=== PATIENT | male | born 1990 | race Caucasian/White ===

== ENCOUNTER 2020-11-11 17:42 | Emergency (ER) | payer BC, SELFPAY ==
[2020-11-11 18:06] VITALS: BP 112/73; PULSE 91; RESP 16; TEMP 36.8; O2SAT 98
--- NOTE | 2020-11-11 18:41 | ED.EAR ---
HPI - Ear Problem General Chief complaint: Ear Stated complaint: LEFT EAR PAIN Time Seen by Provider: 11/11/20 18:10 Source: patient, family, RN notes reviewed and old records reviewed Mode of arrival: ambulatory Limitations: no limitations History of Present Illness HPI Narrative: 30 year old male accompanied by presents to express care with complaints of runny nose, headache, sore throat,left ear pain, congestion, bloody nose episode X1 since last . Patient states that he has taken Mucinex,Tylenol and Ibuprofen with no improvement in his symptoms. Patient states that his symptoms started with headache and his left ear feeling clogged and at times his equilibrium has felt off. Patient states that he does not have PCP, has not had COVID vaccinations. MD Complaint: ear pain and decreased hearing Location: left ear Discharge from ear: Reports no Associated symptoms ear: fever, headache, rhinorrhea and other (nose bleeds) Treatment prior to arrival: oral analgesic Related Data Allergies Allergy/AdvReac Type Severity Reaction Status Date / Time No Known Allergies Allergy Mild Verified 11/11/20 17:51 Review of Systems Review of Systems: CONSTITUTIONAL: Positive for low grade fever, no chills, or sweats. EYES: Denies visual changes, redness, or discharge. ENT: Positive for rhinorrhea, congestion, sore throat, left otalgia. CARDIOVASCULAR: Denies chest pain, palpitations, or edema. RESPIRATORY: Denies cough or dyspnea. GASTROINTESTINAL: Denies abdominal pain, nausea, vomiting, or diarrhea. GENITOURINARY: Denies dysuria or hematuria. SKIN: Denies rash or itching. MUSCULOSKELETAL: Denies back pain, joint pain, or myalgia. NEUROLOGIC: Positive intermittent headache, no numbness, or weakness, reports that equilibrium feels off at times. PSYCHIATRIC: Denies anxiety or depression. All systems reviewed & are unremarkable except as noted in HPI and below PMFSH Past Medical History Medical History (Updated 11/13/20 @ 10:42 by Annita Cuellar NP) ADD (attention deficit disorder) Dental abscess Hypoglycemia Surgical History Surgical History (Updated 11/11/20 @ 18:45 by Annita Cuellar NP) [place] teeth extracted Family History Family History Mother Family history of gastrointestinal disorder Other Cerebrovascular accident Diabetes mellitus Family history of cardiovascular disease Hypertension Social History Social History Smoking status: Never smoker Alcohol intake: never Gender identity (if verbalized by the patient): Male Comments At time of signature, agree with nursing past medical, surgical, social and family history. There is no relevant family history pertinent to the presenting complaint Exam Narrative: GENERAL: Well-appearing, well-nourished, and in no acute distress. HEAD: Normocephalic, atraumatic. EYES: PERRLA and EOMI. ENT: Nares red , clear to light yellow rhinorrhea positive for episodes of epistaxis. Mucous membranes moist.Right TM normal with good light reflex, left TM red and bulging, throat red with no exudates or lesions, tonsils enlarged and red, post nasal drainage noted. NECK: Supple.no lymphadenopathy CHEST: Clear to auscultation. No respiratory distress. SAO2 98% on room air HEART: Regular rate and rhythm. No murmur heard. Normal peripheral pulses. ABDOMEN: Soft, nontender, nondistended, normal active bowel sounds. EXTREMITIES: Normal range of motion. No edema. SKIN: Warm, dry, no rash. NEURO: No focal deficits. Alert and oriented x3. Course Vital Signs Vital signs: Vital Signs Temperature 36.8 C 11/11/20 18:06 Pulse Rate 91 11/11/20 18:06 Respiratory Rate 16 11/11/20 18:06 Blood Pressure 112/73 11/11/20 18:06 Pulse Oximetry 98 11/11/20 18:06 Temperature 36.8 C 11/11/20 18:06 Pulse Rate 91 11/11/20 18:06 Respiratory Rate 16
== END 2020-11-11 18:53 | disposition home or self-care (01) ==
PROVIDERS: Emergency Provider Registered Nurse
DX: J06.9 Acute upper respiratory infection, unspecified (principal); H65.02 Acute serous otitis media, left ear; Z20.822 Contact with and (suspected) exposure to COVID-19
CPT/HCPCS: 87081; 87426; 87880; 99213; C9803; G0463

== ENCOUNTER 2021-10-15 10:25 | Emergency (ER) | payer BC, SELFPAY ==
[2021-10-15 10:34] VITALS: BP 129/79; PULSE 82; RESP 16; TEMP 36.7; O2SAT 99
--- NOTE | 2021-10-15 10:55 | ED.URI ---
HPI - URI/Sore Throat General Chief Complaint: Ear Stated Complaint: ear infection Time Seen by Provider: 10/15/21 10:43 Source: patient Mode of arrival: ambulatory Limitations: no limitations History of Present Illness HPI Narrative: Patient presents today complaining of a 2-day history of right ear pain, sore throat, postnasal drip, rhinorrhea. Denies fever cough. Currently rates pain 6/10 and has been taking DayQuil and cough medicine without relief. Related Data Home Medications Medication Instructions Recorded Confirmed No Home Medications 10/15/21 10/15/21 Allergies Allergy/AdvReac Type Severity Reaction Status Date / Time No Known Allergies Allergy Mild Verified 10/15/21 10:37 Review of Systems Review of Systems: CONSTITUTIONAL: Denies body aches, fever, chills, or sweats. EYES: Denies visual changes, redness, or discharge. ENT: Denies congestion. + Sore throat, postnasal drip, rhinorrhea, right ear pain CARDIOVASCULAR: Denies chest pain, palpitations, or edema. RESPIRATORY: Denies cough or dyspnea. GASTROINTESTINAL: Denies abdominal pain, nausea, vomiting, or diarrhea. GENITOURINARY: Denies dysuria or hematuria. SKIN: Denies rash, itching, or wounds. MUSCULOSKELETAL: Denies back pain, joint pain, or myalgia. NEUROLOGIC: Denies headache, numbness, tingling, or weakness. PSYCH: Denies depression or anxiety. [facility] Past Medical History Medical History ADD (attention deficit disorder) Dental abscess Hypoglycemia Surgical History Surgical History [place] teeth extracted Family History Family History Mother Family history of gastrointestinal disorder Other Cerebrovascular accident Diabetes mellitus Family history of cardiovascular disease Hypertension Social History Social History Smoking status: Never smoker Alcohol intake: never Gender identity (if verbalized by the patient): Male Comments At time of signature, I have reviewed and agree with nursing past medical, surgical, social and family history unless otherwise noted. Please see nursing chart for further information. There is no relevant family history pertinent to the presenting complaint Exam Narrative: GENERAL: Well-appearing, well-nourished, and in no acute distress. HEAD: Normocephalic, atraumatic. EYES: EOMI. No redness or drainage. Conjunctivae normal. ENT: Mucous membranes pink and moist. Nares clear. No rhinorrhea. Left TM normal. Right TM with serous effusion. No evidence of bacterial infection bilaterally. Throat normal with white postnasal drainage. Uvula midline. NECK: Normal AROM. Supple. No lymphadenopathy. CHEST: No respiratory distress. Clear to auscultation. HEART: Regular rate and rhythm. No murmur appreciated. Normal peripheral pulses. EXTREMITIES: Normal range of motion. No edema. SKIN: Warm, dry, no rash. Capillary refill normal. Normal skin turgor. NEURO: No focal deficits. Alert and oriented x3. Gait steady. PSYCH: Normal affect. No signs of depression or anxiety. Course Course Level of Care: Express Care Visit Vital Signs Vital signs: Vital Signs Temperature 98.1 F 10/15/21 10:34 Pulse Rate 82 10/15/21 10:34 Respiratory Rate 16 10/15/21 10:34 Blood Pressure 129/79 10/15/21 10:34 Pulse Oximetry 99 10/15/21 10:34 Oxygen Delivery Room Air 10/15/21 10:34 Temperature 98.1 F 10/15/21 10:34 Pulse Rate 82 10/15/21 10:34 Respiratory Rate 16 10/15/21 10:34 Blood Pressure 129/79 10/15/21 10:34 Pulse Oximetry 99 10/15/21 10:34 Oxygen Delivery Room Air 10/15/21 10:34 Reviewed. Pt has been instructed to follow up with his PCP regarding his elevated blood pressure today. MDM - URI/Sore Throat Differential
== END 2021-10-15 11:03 | disposition home or self-care (01) ==
PROVIDERS: Emergency Provider Nurse Practitioner
DX: J06.9 Acute upper respiratory infection, unspecified (principal)
CPT/HCPCS: 99213; G0463

== ENCOUNTER 2023-01-16 18:16 | Emergency (ER) | payer BC, SELFPAY ==
--- NOTE | ~2023-01-16 | XR_ITS ---
EXAM: XR ankle RT min 3V DATE: 01/16/2023 18:39 HISTORY: fall, anterior/lat/medial pain . COMPARISON: 12/17/2015. FINDINGS: Normal mineralization. No fracture or dislocation. No lytic or blastic lesion. Joint space s are maintained. No erosion or periosteal change. Soft tissues within normal limits. IMPRESSION: No acute osseous finding in the right ankle. Reviewed, dictated and finalized at location K.
[2023-01-16 18:29] VITALS: BP 127/66; PULSE 99; RESP 16; TEMP 36.6; O2SAT 100
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
== END 2023-01-16 19:30 | disposition home or self-care (01) ==
PROVIDERS: Emergency Provider Nurse Practitioner
DX: S93.401A Sprain of unspecified ligament of right ankle, initial encounter (principal); X50.9XXA Other and unspecified overexertion or strenuous movements or postures, initial encounter; Y93.41 Activity, dancing
CPT/HCPCS: 73610; 99213; G0463

== ENCOUNTER 2023-07-04 12:28 | Emergency (ER) | payer BC, SELFPAY ==
--- NOTE | ~2023-07-04 | CT_ITS ---
EXAMINATION: CT abdomen pelvis w con DATE: 07/04/2023 17:16 INDICATION: Right lower quadrant abdominal pain. Nausea. TECHNIQUE: Computed tomography (CT) of the abdomen and pelvis was performed with 100 mL Omnipaque 350 intravenous contrast. Automated exposure control and iterative reconstruction technique were employe d. The dose-length product was 272.75 mGy-cm. COMPARISON: None. FINDINGS: The visualized portions of the lung bases are clear without pneumonia or pleural effusion. The heart size is normal. No pericardial effusion. The liver, gallbladder, spleen, pancreas, adrenal glands, and kidneys are normal. There are no dilated loops of bowel. The appendix is normal. There ar e no pathologically enlarged lymph nodes. There is no free intraperitoneal fluid. There is mild lumba r spondylosis. IMPRESSION: 1. No etiology for the patient's symptoms. Reviewed, dictated and finalized at location E.
[2023-07-04 13:01] VITALS: BP 118/81; PULSE 85; RESP 16; TEMP 36.8; O2SAT 100
--- NOTE | 2023-07-04 16:50 | ED.ABDPAIN ---
HPI - Abdominal Pain General Chief Complaint: Abdominal Pain <LEYDA De La Cruz Last Filed: 07/04/23 16:58> Stated Complaint: abd pain <LEYDA De La Cruz Last Filed: 07/04/23 16:58> Time Seen by Provider: 07/04/23 16:50 <LEYDA De La Cruz Last Filed: 07/04/23 16:58> Focused HPI: Patient is a 33 y/o male who presents to the ED with c/o ABD pain. Patient reports he woke up around 3 am pain in his abdomen. Pain started in his mid abdomen, now radiating to his R lower abdomen. States pain has been constant. Tried taking TUMS w/o relief. He c/o nausea due to the pain, loss of appetite. Denies vomiting, diarrhea, constipation, fevers, Hx of similar pain. GENERAL: Well-appearing, well-nourished, and in no acute distress. HEAD: Normocephalic, atraumatic. CHEST: Clear to auscultation. ?No respiratory distress. HEART: Regular rate and rhythm.? ABD: TTP in RLQ, periumbilical region. Normoactive BS. NEURO: ?Alert and oriented x3. Patient screened in triage and initial orders placed.? ?Additional care and disposition to be based upon?diagnostic testing and treatment. <LEYDA De La Cruz Last Filed: 07/04/23 16:58> Source: patient <LEYDA De La Cruz Last Filed: 07/04/23 16:58> Mode of arrival: ambulatory <LEYDA De La Cruz Last Filed: 07/04/23 16:58> Limitations: no limitations <LEYDA De La Cruz Last Filed: 07/04/23 16:58> History of Present Illness HPI narrative: Patient is a 33-year-old male here today with abdominal pain. Patient notes that this began overnight last night and was associated with significant nausea and multiple episodes of vomiting. The pain began in the epigastrium and progressed to the right lower quadrant. He denies any prior abdominal surgeries. He does note that he had a similar pain approximately 2 years ago when he was seen at [facility]. He was having bright red blood per rectum at that time, is not having blood per rectum now. It was suspected that he had a a.m. bleeding gastric ulcer, was offered admission and he preferred to be discharged home. He has not followed up with any primary care doctor since that time or any GI doctor. No prior history of colonoscopy or endoscopy. No fever or chills. No urinary symptoms. <Livia Ashford MD - Last Filed: 07/04/23 18:36> Related Data Allergies/Adverse Reactions: Allergies Allergy/AdvReac Type Severity Reaction Status Date / Time No Known Allergies Allergy Mild Verified 01/16/23 18:17 <Chastity Valle PA-C - Last Filed: 07/04/23 16:58> Review of Systems Review of Systems: All systems reviewed & are unremarkable except as noted in HPI and below <Livia Ashford MD - Last Filed: 07/04/23 18:36> [facility] Past Medical History Medical History: Medical History ADD (attention deficit disorder) Dental abscess Hypoglycemia <Chastity Valle PA-C - Last Filed: 07/04/23 16:58> Surgical History Surgical History: Surgical History [place] teeth extracted <Chastity Valle PA-C - Last Filed: 07/04/23 16:58> Family History Family History: Family History Mother Family history of gastrointestinal disorder Other Cerebrovascular accident Diabetes mellitus Family history of cardiovascular disease Hypertension <Chastity Valle PA-C - Last Filed: 07/04/23 16:58> Social History Social History: Social History Smoking status: Never smoker Alcohol intake: never Gender identity (if verbalized by the patient): Male <LEYDA De La Cruz Last Filed: 07/04/23 16:58> Exam Narrative: GENERAL: Well-appearing, well-nourished, and in no acute
[2023-07-04 17:04] LABS: Glucose Point of Care 167 mg/dl (65-105)
[2023-07-04 17:11] LABS: Basophils Percent Auto 0.6 % (0.2-1.2); Eosinophils Percent Auto 0.4 % (0-4.4); Hematocrit 47.2 % (42.0-52.0); Immature Granulocyte Absolute 0.01 K/mm3 (0.00-0.031); Immature Granulocyte Percent A 0.1 % (0-0.5); Lymphocytes Absolute Auto 1.38 K/mm3 (0.9-3.2); Lymphocytes Percent Auto 20.3 % (18.3-44.2); Mean Corpuscular HGB Conc 33.9 g/dl (32-36); Mean Corpuscular Volume 88.4 fl (80-100); Monocytes Absolute Auto 0.4 K/mm3 (0.1-0.6); Neutrophils Absolute Auto 4.9 K/mm3 (1.3-6.7); Neutrophils Percent Auto 72.6 % (45.5-73.1); Platelet Count Result 320 k/mm3 (150-375); Red Blood Count 5.34 M/mm3 (4.6-6.20); Red Cell Distribution Width 11.9 % (11.5-14.5); White Blood Count 6.8 K/mm3 (4.5-10.0)
[2023-07-04 17:22] LABS: Alanine Aminotransferase 19 U/L (6-50); Albumin Level 4.9 g/dL (3.5-5.1); Alkaline Phosphatase 52 U/L (38-126); Anion Gap 9 mmol/L (4-12); Aspartate Amino Transferase 26 U/L (17-59); Bilirubin,Total 0.6 mg/dL (0.2-1.3); Blood Urea Nitrogen 8 mg/dL (9-20); Calcium 9.8 mg/dL (8.4-10.2); Carbon Dioxide 27 mmol/L (22-30); Chloride 101 mmol/L (98-107); Estimated CRCL calculation 102 ml/min; Estimated Glomerular Filt Rate > 60; Glucose 171 mg/dL (65-110); Lipase 103 U/L (23-300); Potassium 3.9 mmol/L (3.4-5.0); Sodium 137 mmol/L (137-145)
[2023-07-04] MEDS: DICYCLOMINE HCL INJ 20 MG/2 ML VIAL IM (18:03)
[2023-07-04] MEDS: ONDANSETRON INJ 4 MG/2 ML VIAL IV PUSH (18:03)
[2023-07-04] MEDS: PANTOPRAZOLE SODIUM IV 40 MG VIAL IV PUSH (18:03)
[2023-07-04] MEDS: BELLADONNA ALK/PHENOB ELIX 10 ML, MAG HYDROX/ALUMINUM HYD/SIMETH 30 ML, LIDOCAINE HCL 2... PO (18:03)
[2023-07-04 18:23] LABS: Glucose Point of Care 136 mg/dl (65-105)
[2023-07-04 18:54] VITALS: BP 104/60; PULSE 71; RESP 19; O2SAT 99
== END 2023-07-04 18:56 | disposition home or self-care (01) ==
LOC: ANHED 18:00
PROVIDERS: Physician Assistant; Emergency Provider Student in an Organized Health Care Education/Training Program
DX: R10.84 Generalized abdominal pain (principal)
CPT/HCPCS: 36415; 74177; 80053; 82948; 83690; 85025; 96372; 96374; 96375; 99284; A9270; C9113; J0500; J2405; Q9967

== ENCOUNTER 2023-12-25 12:40 | Emergency (ER) | payer BC, SELFPAY ==
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
[2023-12-25 12:57] VITALS: BP 113/94; PULSE 93; RESP 16; TEMP 36.5; O2SAT 99
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
[2023-12-25] MEDS: IBUPROFEN 400 MG TABLET 800 MG PO (14:14)
== END 2023-12-25 14:19 | disposition home or self-care (01) ==
PROVIDERS: Emergency Provider Nurse Practitioner Family
DX: S43.101A Unspecified dislocation of right acromioclavicular joint, initial encounter (principal); V86.95XA Unspecified occupant of 3- or 4- wheeled all-terrain vehicle (ATV) injured in nontraffic accident, initial encounter
CPT/HCPCS: 73030; 99213; A4565; A9270; G0463